=== PATIENT | female | born 1975 | race Caucasian/White ===

== ENCOUNTER 2018-08-17 06:40 | Inpatient (IN) | payer OTHER ==
[~2018-08-17] VITALS: Ht 154.9 cm; Wt 89.0 kg
[~2018-08-17 06:40] MED LIST: BUPIVACAINE LIPOSOME/PF 1.3%-13.3MG/ML SUSPENSION 20 ML VIAL INJ ONE; CeFAZolin 1 GM/DEXTROSE 50 ML IV ONE; RINGERS SOLUTION,LACTATED 1,000 ML IV ONE
[2018-08-17] MEDS ORDERED: RINGERS SOLUTION,LACTATED 1,000 ML IV ONE ×2 (06:43→06:59)
[2018-08-17] MEDS ORDERED: SODIUM CHLORIDE 0.9% 10 ML ONE (06:58)
[2018-08-17] MEDS ORDERED: VANCOMYCIN HCL 1 GM/VIAL ONE (06:58)
[2018-08-17] MEDS ORDERED: BUPIVACAINE HCL/PF 0.5% 30 ML VIAL ONE (06:59)
[2018-08-17] MEDS ORDERED: ZOLPIDEM TARTRATE 10 MG TABLET PO PRN (08:00)
[2018-08-17] MEDS ORDERED: MAG HYDROX/AL HYDROX/SIMETH 30 ML SUSP UDCUP PO PRN (08:00)
[2018-08-17] MEDS ORDERED: BENZOCAINE/MENTHOL LOZENGE PO PRN (08:00)
[2018-08-17] MEDS ORDERED: DiphenhydrAMINE HCL 50 MG/ML VIAL IVP PRN (08:00)
[2018-08-17] MEDS ORDERED: BUPIVACAINE HCL/PF 0.5% 10 ML VIAL ONE (08:12)
[2018-08-17] MEDS: DOCUSATE SODIUM 100 MG CAPSULE PO SCH ×2 (09:00→20:58)
[2018-08-17] MEDS ORDERED: HYDROmorphone 2 MG/ML SYRINGE IM PRN (10:15)
[2018-08-17] MEDS ORDERED: FentaNYL CITRATE-PF 100 MCG/2 ML VIAL IVP PRN (10:15)
[2018-08-17] MEDS ORDERED: MEPERIDINE-PF 25 MG/ML VIAL IVP PRN (10:15)
[2018-08-17] MEDS ORDERED: HYDROCODONE/ACETAMINOPHEN 5-325 MG TABLET PO PRN (10:30)
[2018-08-17] MEDS ORDERED: HYDROmorphone 2 MG/ML SYRINGE ONE (11:16)
[2018-08-17] MEDS: HYDROmorphone 2 MG/ML SYRINGE IVP PRN ×5 (11:19→19:06)
[2018-08-17 11:58] VITALS: BP 111/58
[2018-08-17] MEDS: CYCLOBENZAPRINE HCL 10 MG TABLET PO SCH ×3 (14:23→23:23)
[2018-08-17] MEDS ORDERED: SODIUM CHLORIDE 0.9% 1,000 ML IV ONE (15:49)
[2018-08-17] MEDS: GABAPENTIN 300 MG CAPSULE PO SCH ×2 (16:00→16:02)
[2018-08-17 16:02] VITALS: BP 101/59
[2018-08-17] MEDS: ACETAMINOPHEN 1000 MG/ISO-OSM 100 ML IV SCH ×2 (16:02→23:22)
[2018-08-17] MEDS: KETOROLAC TROMETHAMINE 30 MG/ML VIAL IVP SCH ×2 (17:02→23:23)
[2018-08-17] MEDS: OXYGEN THERAPY IH SCH (20:00)
[2018-08-17 20:30] VITALS: BP 117/47
[2018-08-17] MEDS: LevETIRAcetam 500 MG TABLET PO SCH (20:58)
[2018-08-17] MEDS ORDERED: CITALOPRAM HYDROBROMIDE 20 MG TABLET PO SCH (21:00)
[2018-08-17] MEDS ORDERED: LamoTRIgine 100 MG TABLET PO SCH ×2 (21:00→22:30)
[2018-08-17] MEDS ORDERED: GABAPENTIN 300 MG CAPSULE PO SCH (21:00)
[2018-08-17] MEDS: VARENICLINE TARTRATE 1 MG TABLET PO SCH (22:41)
[2018-08-17 23:53] LABS: APPEARANCE,URINE CLEAR (CLEAR); BILIRUBIN,URINE NEGATIVE (NEGATIVE); GLUCOSE, URINE (UA) NEGATIVE (NEGATIVE); KETONES,URINE NEGATIVE (NEGATIVE); LEUKOCYTE ESTERASE ,URINE NEGATIVE (NEGATIVE); NITRATE,URINE NEGATIVE (NEGATIVE); OCCULT BLOOD,URINE MODERATE (NEGATIVE); PH,URINE 6.5 (5.0-8.0); PROTEIN,URINE NEGATIVE (NEGATIVE); UROBILINOGEN,URINE 0.2 mg/dL (<=1.0)
[2018-08-18 00:01] VITALS: BP 94/59
[2018-08-18 00:20] LABS: BACTERIA,URINE None Seen /HPF (None Seen); SQUAMOUS EPITHELIAL CELL,UR Rare /LPF (None Seen); WBC,URINE None Seen /HPF (0-5)
[2018-08-18 04:29] VITALS: BP 104/57
[2018-08-18] MEDS: KETOROLAC TROMETHAMINE 30 MG/ML VIAL IVP SCH ×2 (05:23→12:27)
[2018-08-18] MEDS: CYCLOBENZAPRINE HCL 10 MG TABLET PO SCH ×2 (05:23→12:27)
[2018-08-18] MEDS ORDERED: SUCCINYLCHOLINE CHLORIDE 20 MG/ML 10 ML VIAL IVP ONE (05:54)
[2018-08-18] MEDS ORDERED: ONDANSETRON HCL 4 MG/2 ML VIAL IVP ONE (05:54)
[2018-08-18] MEDS ORDERED: PROPOFOL 1% 20 ML VIAL IVP ONE (05:54)
[2018-08-18] MEDS ORDERED: NEOSTIGMINE METHYLSULFATE 1 MG/ML 10 ML VIAL IVP ONE (05:54)
[2018-08-18] MEDS ORDERED: LIDOCAINE/PF 2% 5 ML VIAL IM ONE (05:54)
[2018-08-18] MEDS ORDERED: GLYCOPYRROLATE 0.2 MG/ML VIAL IM ONE (05:54)
[2018-08-18] MEDS ORDERED: MIDAZOLAM HCL 2 MG/2 ML VIAL IVP ONE (05:54)
[2018-08-18] MEDS ORDERED: DEXAMETHASONE SOD PHOS 4 MG/ML VIAL IVP ONE (05:54)
[2018-08-18] MEDS ORDERED: EPHEDrine SULFATE 50 MG/ML VIAL IM ONE (05:54)
[2018-08-18] MEDS ORDERED: FentaNYL CITRATE-PF 100 MCG/2 ML VIAL IVP ONE (05:54)
[2018-08-18] MEDS ORDERED: KETOROLAC TROMETHAMINE 60 MG/2 ML VIAL IM ONE (05:54)
[2018-08-18 06:00] LABS: BASOPHILS % (AUTO) 0.1 % (0.0-2.0); EOSINOPHILS % (AUTO) 0.1 % (1.0-6.0); HEMATOCRIT 36.6 % (36-46); HEMOGLOBIN 12.2 g/dL (12.0-16.0); LYMPHOCYTES # (AUTO) 2.5 K/uL (1.0-4.8); LYMPHOCYTES % (AUTO) 20.3 % (22.0-44.0); MEAN CORPUSCULAR HEMOGLOBIN 29.9 pg (26.0-34.0); MEAN CORPUSCULAR HGB CONC 33.4 G/dL (31.0-37.0); MEAN CORPUSCULAR VOLUME 89 fL (80-100); MONOCYTES # (AUTO) 0.7 K/uL (0.1-1.0); MONOCYTES % (AUTO) 5.8 % (2.0-9.0); NEUTROPHILS % (AUTO) 73.7 % (40.0-70.0); PLATELET COUNT (AUTO) 209 K/uL (150-450); RED BLOOD CELL COUNT(AUTO) 4.09 MIL/uL (4.00-5.20); RED CELL DISTRIBUTION WIDTH 12.9 % (11.5-14.5)
[2018-08-18 06:16] LABS: ANION GAP 7 mmol/L (8-16); CALCIUM, TOTAL 8.5 mg/dL (8.8-10.5); CARBON DIOXIDE 26 mmol/L (22-29); CHLORIDE 105 mmol/L (98-107); CREATININE 0.75 mg/dL (0.60-1.30); GLOMERULAR FILTR. RATE CALC > 60 mL/min (>60); GLUCOSE,RANDOM 106 mg/dL (70-110); POTASSIUM 3.7 mmol/L (3.5-5.1); SODIUM SERUM 138 mmol/L (136-145); UREA NITROGEN, BLOOD 9 mg/dL (7-18)
[2018-08-18 07:35] VITALS: BP 122/66
[2018-08-18] MEDS: OXYGEN THERAPY IH SCH (08:00)
[2018-08-18] MEDS: HYDROmorphone 2 MG/ML SYRINGE IVP PRN ×2 (08:11→10:28)
[2018-08-18] MEDS: ACETAMINOPHEN 1000 MG/ISO-OSM 100 ML IV SCH (08:11)
[2018-08-18] MEDS: DOCUSATE SODIUM 100 MG CAPSULE PO SCH (08:12)
[2018-08-18] MEDS: LevETIRAcetam 500 MG TABLET PO SCH (08:12)
[2018-08-18] MEDS: VARENICLINE TARTRATE 1 MG TABLET PO SCH (08:13)
[2018-08-18] MEDS ORDERED: GABAPENTIN 300 MG CAPSULE PO SCH (09:00)
[2018-08-18] MEDS ORDERED: LamoTRIgine 100 MG TABLET PO SCH (09:00)
[2018-08-18 11:30] VITALS: BP 96/59
[2018-08-18] MEDS ORDERED: HYDR-4455 PO (12:36)
== END 2018-08-18 14:19 | disposition home or self-care (01) | DRG 460 ==
LOC: 4E 06:40
PROVIDERS: ADMIT Orthopaedic Surgery Orthopaedic Surgery of the Spine; ATTEND Orthopaedic Surgery Orthopaedic Surgery of the Spine
PROC: 0ST40ZZ Resection of Lumbosacral Disc, Open Approach (ICD-10-PCS; 2018-08-17)
PROC: 0SG30A0 Fusion of Lumbosacral Joint with Interbody Fusion Device, Anterior Approach, Anterior Column, Open Approach (ICD-10-PCS; principal; 2018-08-17 06:30)
DX: M51.37 Other intervertebral disc degeneration, lumbosacral region (principal); G40.909 Epilepsy, unspecified, not intractable, without status epilepticus; M54.9 Dorsalgia, unspecified; M43.17 Spondylolisthesis, lumbosacral region; F32.9 Major depressive disorder, single episode, unspecified; F43.10 Post-traumatic stress disorder, unspecified; E66.9 Obesity, unspecified; Z68.37 Body mass index [BMI] 37.0-37.9, adult; Z91.040 Latex allergy status; Z88.8 Allergy status to other drugs, medicaments and biological substances; Z79.899 Other long term (current) drug therapy
CPT/HCPCS: 87081; 88300; 97161; 97166; 97530; 97535; C9290; G0238; J0131; J0330; J0690; J1100; J1170; J1885; J2250; J2405; J2704; J3010; J3370; J3490; J7030; J7120

== ENCOUNTER 2018-12-25 06:15 | Inpatient (IN) | payer OTHER ==
[~2018-12-25] VITALS: Ht 152.4 cm; Wt 94.5 kg
[~2018-12-25 06:15] MED LIST changes: +ARIP5TAB8 PO; -BUPIVACAINE LIPOSOME/PF 1.3%-13.3MG/ML SUSPENSION 20 ML VIAL INJ ONE; -CeFAZolin 1 GM/DEXTROSE 50 ML IV ONE; +CeFAZolin 2 GM/DEXTROSE 50 ML IV ONE; +DESV50TA PO; +DIVA-78 PO; +LAMO100 PO; +LEVE250T55 PO; +LEVE500T53 PO
[2018-12-25] MEDS ORDERED: BUPIVACAINE HCL/PF 0.5% 30 ML VIAL ONE (07:11)
[2018-12-25] MEDS ORDERED: VANCOMYCIN HCL 1 GM/VIAL ONE (07:11)
[2018-12-25 07:13] LABS: BASOPHILS % (AUTO) 0.9 % (0.0-2.0); EOSINOPHILS % (AUTO) 3.7 % (1.0-6.0); HEMATOCRIT 38.9 % (36-46); HEMOGLOBIN 12.8 g/dL (12.0-16.0); LYMPHOCYTES # (AUTO) 2.3 K/uL (1.0-4.8); LYMPHOCYTES % (AUTO) 29.5 % (22.0-44.0); MEAN CORPUSCULAR HGB CONC 32.9 G/dL (31.0-37.0); MEAN CORPUSCULAR VOLUME 91 fL (80-100); MONOCYTES # (AUTO) 0.5 K/uL (0.1-1.0); MONOCYTES % (AUTO) 6.7 % (2.0-9.0); NEUTROPHILS # (AUTO) 4.6 K/uL (1.8-7.7); NEUTROPHILS % (AUTO) 59.2 % (40.0-70.0); PLATELET COUNT (AUTO) 208 K/uL (150-450); RED BLOOD CELL COUNT(AUTO) 4.27 MIL/uL (4.00-5.20); RED CELL DISTRIBUTION WIDTH 13.4 % (11.5-14.5)
[2018-12-25] MEDS ORDERED: BUPIVACAINE LIPOSOME/PF 1.3%-13.3MG/ML SUSPENSION 10 ML VIAL INJ ONE (07:15)
[2018-12-25 07:23] LABS: ANION GAP 10 mmol/L (8-16); CALCIUM, TOTAL 9.1 mg/dL (8.8-10.5); CARBON DIOXIDE 26 mmol/L (22-29); CHLORIDE 106 mmol/L (98-107); CREATININE 0.89 mg/dL (0.60-1.30); GLOMERULAR FILTR. RATE CALC > 60 mL/min (>60); GLUCOSE,RANDOM 103 mg/dL (70-110); SODIUM SERUM 142 mmol/L (136-145); UREA NITROGEN, BLOOD 16 mg/dL (7-18)
[2018-12-25 07:30] LABS: INR 0.9 (0.9-1.1); PROTHROMBIN TIME 9.8 SEC (9.4-11.6)
[2018-12-25 07:35] LABS: ALANINE AMINOTRANSFERASE 35 U/L (12-78); ALKALINE PHOSPHATASE 43 U/L (46-116); ASPARTATE AMINOTRANSFERASE 17 U/L (15-37); BILIRUBIN,TOTAL 0.1 mg/dL (0.1-1.0); HCG,QUANTITATIVE < 1 mIU/mL (0-6); TOTAL PROTEIN, SERUM 6.6 g/dL (6.4-8.2)
[2018-12-25] MEDS ORDERED: DiphenhydrAMINE HCL 50 MG/ML VIAL IVP PRN (08:15)
[2018-12-25] MEDS ORDERED: MAG HYDROX/AL HYDROX/SIMETH 30 ML SUSP UDCUP PO PRN (08:15)
[2018-12-25] MEDS ORDERED: ZOLPIDEM TARTRATE 10 MG TABLET PO PRN (08:15)
[2018-12-25] MEDS ORDERED: FentaNYL CITRATE-PF 100 MCG/2 ML VIAL IVP PRN ×2 (09:00)
[2018-12-25] MEDS ORDERED: CYCLOBENZAPRINE HCL 10 MG TABLET PO PRN (09:00)
[2018-12-25] MEDS ORDERED: MEPERIDINE-PF 25 MG/ML VIAL IVP PRN (09:00)
[2018-12-25] MEDS ORDERED: RINGERS SOLUTION,LACTATED 1,000 ML IV ONE (09:10)
[2018-12-25] MEDS ORDERED: HYDROmorphone 2 MG/ML SYRINGE ONE (10:22)
[2018-12-25] MEDS: HYDROmorphone 2 MG/ML SYRINGE IVP PRN ×2 (10:23→10:35)
[2018-12-25] MEDS ORDERED: ONDANSETRON HCL 4 MG/2 ML VIAL ONE (10:25)
[2018-12-25] MEDS: ONDANSETRON HCL 4 MG/2 ML VIAL IVP PRN (10:26)
[2018-12-25] MEDS ORDERED: OxyCODONE HCL 5 MG IR TABLET PO PRN (10:30)
[2018-12-25 11:39] VITALS: BP 103/65
[2018-12-25] MEDS ORDERED: FentaNYL CITRATE-PF 100 MCG/2 ML VIAL IVP ONE (12:00)
[2018-12-25] MEDS ORDERED: MIDAZOLAM HCL 2 MG/2 ML VIAL IVP ONE (12:00)
[2018-12-25] MEDS: DOCUSATE SODIUM 100 MG CAPSULE PO SCH ×2 (12:45→20:30)
[2018-12-25] MEDS: OxyCODONE HCL/ACETAMINOPHEN 5-325 MG TABLET PO PRN ×2 (12:46→17:28)
[2018-12-25 16:12] VITALS: BP 110/66
[2018-12-25 19:31] VITALS: BP 104/60
[2018-12-25] MEDS ORDERED: OXYGEN THERAPY IH SCH (20:00)
[2018-12-25] MEDS: LevETIRAcetam 500 MG TABLET PO SCH (20:31)
[2018-12-25] MEDS ORDERED: LamoTRIgine 100 MG TABLET PO SCH (21:00)
[2018-12-25] MEDS ORDERED: DIVALPROEX SODIUM 500 MG DR TABLET PO SCH (21:00)
[2018-12-25] MEDS ORDERED: LevETIRAcetam 250 MG TABLET PO SCH (21:00)
[2018-12-25] MEDS ORDERED: LevETIRAcetam 500 MG TABLET PO ONE (21:15)
[2018-12-25] MEDS ORDERED: DIVALPROEX SODIUM 500 MG DR TABLET PO ONE (22:00)
[2018-12-25 23:09] VITALS: BP 106/51
[2018-12-26] MEDS: OxyCODONE HCL/ACETAMINOPHEN 5-325 MG TABLET PO PRN ×2 (01:09→09:39)
[2018-12-26 04:24] VITALS: BP 107/55
[2018-12-26 07:10] VITALS: BP 107/71
[2018-12-26] MEDS: LevETIRAcetam 500 MG TABLET PO SCH (08:19)
[2018-12-26] MEDS: DOCUSATE SODIUM 100 MG CAPSULE PO SCH (08:19)
[2018-12-26] MEDS ORDERED: DESVENLAFAXINE SUCCINATE 25 MG PO SCH (09:00)
[2018-12-26] MEDS ORDERED: LamoTRIgine 100 MG TABLET PO SCH ×2 (09:00→21:00)
[2018-12-26] MEDS: ONDANSETRON HCL 4 MG/2 ML VIAL IVP PRN (10:43)
[2018-12-26 11:25] VITALS: BP 105/53
[2018-12-26] MEDS ORDERED: HYDR-4455 PO (13:32)
[2018-12-26] MEDS ORDERED: ONDA4 PO (13:32)
[2018-12-26] MEDS ORDERED: DIVALPROEX SODIUM 500 MG DR TABLET PO SCH (21:00)
== END 2018-12-26 14:07 | disposition home or self-care (01) | DRG 520 ==
LOC: SDS 06:15 → 4E 06:16 → EDSTATUS 07:30
PROVIDERS: ADMIT Orthopaedic Surgery Orthopaedic Surgery of the Spine; ATTEND Orthopaedic Surgery Orthopaedic Surgery of the Spine
PROC: 0SB20ZZ Excision of Lumbar Vertebral Disc, Open Approach (ICD-10-PCS; principal; 2018-12-25 07:30)
DX: M51.26 Other intervertebral disc displacement, lumbar region (principal)
CPT/HCPCS: 87081; 93005; 97116; 97162; 97165; 97530; 97535; G0378; J0690; J1170; J2250; J2405; J3010; J3370; J3490; J7120